=== PATIENT | male | born 1975 | race African-American/Black ===

== ENCOUNTER 2020-10-07 17:35 | Emergency (ER) | payer SELFPAY ==
[~2020-10-07] VITALS: Ht 190.5 cm; Wt 107.0 kg
[2020-10-07] MEDS ORDERED: TRAMADOL 50MG TABLET PO ONE (18:00)
[2020-10-07 19:11] VITALS: BP 136/76
== END 2020-10-07 19:11 | disposition home or self-care (01) ==
LOC: ER 17:35
DX: S99.821A Other specified injuries of right foot, initial encounter (principal); W22.8XXA Striking against or struck by other objects, initial encounter; Y93.89 Activity, other specified; Y92.89 Other specified places as the place of occurrence of the external cause; Y99.8 Other external cause status; F12.10 Cannabis abuse, uncomplicated
CPT/HCPCS: 73630; 99283

== ENCOUNTER 2022-08-04 21:43 | Emergency (ER) | payer MEDICAID ==
[~2022-08-04] VITALS: Ht 188 cm; Wt 100.0 kg
[2022-08-04 21:48] VITALS: BP_DIAS 95
[2022-08-05] MEDS ORDERED: NAPROXEN 250MG TABLET PO SCH (01:15)
[2022-08-05] MEDS ORDERED: NAPR-677 MT (01:16)
[2022-08-05 01:57] VITALS: BP_SYST 124
== END 2022-08-05 01:55 | disposition home or self-care (01) ==
LOC: ER 21:43
DX: S46.812A Strain of other muscles, fascia and tendons at shoulder and upper arm level, left arm, initial encounter (principal); S66.811A Strain of other specified muscles, fascia and tendons at wrist and hand level, right hand, initial encounter; S66.912A Strain of unspecified muscle, fascia and tendon at wrist and hand level, left hand, initial encounter; R03.0 Elevated blood-pressure reading, without diagnosis of hypertension; Y35.813A Legal intervention involving manhandling, suspect injured, initial encounter; Y93.89 Activity, other specified; Y92.488 Other paved roadways as the place of occurrence of the external cause
CPT/HCPCS: 99282